=== PATIENT | female | born 1975 ===

== ENCOUNTER 2017-06-09 07:45 | Emergency (ER) | payer OTHER ==
[2017-06-09 08:03] VITALS: BP 141/86; PULSE 89; RESP 18; TEMP 97.9; O2SAT 99; BMI 38.0
--- NOTE | 2017-06-09 08:16 | ED PDOC ---
Arrival/HPI - General Time Seen by Provider: 06/09/17 07:59 Historian: Patient - History of Present Illness Narrative History of Present Illness (Text): 06/09/17 08:05 Sabrina Armstrong is a 42 year old female who presents to the emergency department complaining of itchiness and burning sensation on bilateral groin area for a week. Patient notes applying cream Neosporin but there has been no significant relief. Patient denies fever, nausea, vomiting, diarrhea, or other complaints. PMD: Dr. Franklin Ramos Time/Duration: 1 week Symptom Onset: Sudden Symptom Course: Unchanged Quality: Burning (and itchiness) Past Medical History - Provider Review Nursing Documentation Reviewed: Yes Family/Social History - Physician Review Nursing Documentation Reviewed: Yes Family/Social History: Unknown Family HX Allergies/Home Meds Allergies/Adverse Reactions: Allergies No Known Allergies Allergy (Verified 06/09/17 08:04) Home Medications: Home Meds Medication Instructions Recorded Confirmed Benzalkonium Chloride [Neosporin 68 ml TP DAILY 06/09/17 06/09/17 Wound Cleanser 68 ml] Omeprazole 20 mg PO DAILY 06/09/17 06/09/17 Ranitidine HCl [Acid Electron Gun Inspector 150] 150 mg PO DAILY 06/09/17 06/09/17 Review of Systems - Review of Systems Constitutional: absent: Fevers Respiratory: absent: SOB Cardiovascular: absent: Chest Pain Gastrointestinal: absent: Abdominal Pain, Diarrhea, Nausea, Vomiting Musculoskeletal: absent: Back Pain Skin: Rash (itchiness and burning sensation on bilateral groin area) Neurological: absent: Headache Endocrine: absent: Polyuria Physical Exam Vital Signs Reviewed: Yes Vital Signs Temp Pulse Resp BP Pulse Ox 06/09/17 08:02 97.9 F 89 18 141/86 99 Temperature: Afebrile Blood Pressure: Normal Pulse: Regular Respiratory Rate: Normal Appearance: Positive for: Well-Appearing, Non-Toxic, Comfortable Pain Distress: None Mental Status: Positive for: Alert and Oriented X 3 - Systems Exam Head: Present: Atraumatic, Normocephalic Pupils: Present: PERRL Extroacular Muscles: Present: EOMI Conjunctiva: Present: Normal Upper Extremity: Present: Normal Inspection, NORMAL PULSES. No: Cyanosis, Edema , Erythema Lower Extremity: Present: Normal Inspection. No: Edema Neurological: Present: GCS=15, CN II-XII Intact, Speech Normal Skin: Present: Warm, Normal Color, Erythematous (erythematous consistent with dermatitis on bilateral groin area) Psychiatric: Present: Alert, Oriented x 3, Normal Insight, Normal Concentration Medical Decision Making ED Course and Treatment: 06/09/17 Impression: 42 year old female with erythematous consistent with dermatitis. Plan: -- Reassess and disposition Progress Notes: - Scribe Statement The provider has reviewed the documentation as recorded by the Scribe Mei Richmond Provider Scribe Attestation: All medical record entries made by the Scribe were at my direction and personally dictated by me. I have reviewed the chart and agree that the record accurately reflects my personal performance of the history, physical exam, medical decision making, and the department course for this patient. I have also personally directed, reviewed, and agree with the discharge instructions and disposition. Disposition/Present on Arrival - Present on Arrival Any Indicators Present on Arrival: No - Disposition Have Diagnosis and Disposition been Completed?: Yes Diagnosis: Yeast dermatitis Disposition: HOME/ ROUTINE Disposition Time: 08:20 Patient Plan: Discharge Patient Problems: Current Active Problems Problem Status Onset Yeast dermatitis Acute Condition: IMPROVED Discharge Instructions (ExitCare): Skin Yeast Infection (ED) Prescriptions: Clotrimazole 1% Cream [Lotrimin 1%] 1 .8 TP BID #15 gm
== END 2017-06-09 08:39 | disposition home or self-care (01) ==
LOC: ED 07:45
DX: L30.9 Dermatitis, unspecified (principal)

== ENCOUNTER 2018-08-21 09:46 | Outpatient (CLI) | payer OTHER | END 2018-08-21 09:47 | disposition home or self-care (01) | LOC: LAB 09:46 ==